=== PATIENT | male | born 1990 | race Caucasian/White ===

== ENCOUNTER 2017-12-31 10:42 | Day surgery (SDC) | payer MEDICAID ==
[2017-12-31] MEDS ORDERED: HYDROCODONE/APAP 5/325MG TABLET PO ONE (10:43)
[2017-12-31] MEDS ORDERED: NEOSTIGMINE 1 MG/1 ML,10ML VIAL IV ONE (10:43)
[2017-12-31] MEDS ORDERED: SUCCINYLCHOLINE 20 MG/ML 10ML IVP ONE (10:43)
[2017-12-31] MEDS ORDERED: PROPOFOL 10 MG/ML VIAL IV ONE (10:43)
[2017-12-31] MEDS ORDERED: FENTANYL PF 100MCG/2ML VIAL IV ONE (10:43)
[2017-12-31] MEDS ORDERED: GLYCOPYRROLATE 0.2 MG/ML ML IV ONE (10:43)
[2017-12-31] MEDS ORDERED: SEVOFLURANE 250 ML INH ONE (10:43)
[2017-12-31] MEDS ORDERED: LIDOCAINE 2% MDV (20MG/ML) 20ML VIAL IV ONE (10:43)
[2017-12-31] MEDS ORDERED: KETOROLAC 30 MG/ML VIAL IVP ONE (10:43)
[2017-12-31] MEDS ORDERED: ROCURONIUM BROMIDE 50MG/5ML VIAL IV ONE (10:43)
[2017-12-31] MEDS ORDERED: MIDAZOLAM HCL 2MG/2ML VIAL IV ONE (10:43)
[2017-12-31] MEDS ORDERED: BUPIVACAINE 0.25% W/EPI MPF 30ML VIAL IVP ONE (10:43)
[2017-12-31] MEDS ORDERED: ONDANSETRON HCL IV 4 MG/2 ML VIAL IVP ONE (10:43)
[2017-12-31] MEDS ORDERED: 0.9 % SODIUM CHLORIDE 1,000 ML BAG IV ONE (11:13)
[2017-12-31] MEDS ORDERED: ONDANSETRON HCL IV 4 MG/2 ML VIAL IV ONE (11:13)
[2017-12-31 11:43] LABS: BASO % 0.1 % (0-6); EOS % 0.1 % (0-6); GRAN % 79.3 % (47-80); HEMOGLOBIN 15.3 gm/dl (14.0-18.0); LYMPH % 8.9 % (16-45); MEAN CELL VOLUME 89.4 fl (81-97); MEAN CORPUSCULAR HEMOGLOBIN 31.1 pg (27-33); MEAN CORPUSCULAR HGB CONC 34.8 g/dl (32-36); MEAN PLATELET VOLUME 10.9 fl (7.4-10.4); MONO % 11.6 % (0-9); PLATELET COUNT 238 K/uL (130-400); RED BLOOD COUNT 4.92 M/uL (4.40-5.70); RED CELL DISTRIBUTION WIDTH 12.6 % (11.5-14.5); URINE APPEARANCE CLEAR; URINE BILIRUBIN SMALL (NEGATIVE); URINE BLOOD TRACE-I (NEGATIVE); URINE COLOR ORANGE; URINE GLUCOSE (UA) NEGATIVE (NEGATIVE); URINE KETONE TRACE (NEGATIVE); URINE LEUKOCYTE ESTERASE NEGATIVE (NEGATIVE); WHITE BLOOD COUNT W/O DIFF 16.6 K/uL (4.2-12.2)
[2017-12-31 11:50] LABS: URINE NITRITE NEGATIVE (NEGATIVE)
[2017-12-31 11:51] LABS: URINE EPITHELIAL CELLS 0 - 2 (FEW); URINE WBC NONE SEEN (0-2/hpf)
--- NOTE | 2017-12-31 11:51 | Emergency Department Record ---
History of Present Illness - General Chief Complaint: Abdominal Pain Stated Complaint: ABDOMINAL PAIN Time Seen by Provider: 12/31/17 11:09 Source: Patient Mode of Arrival: Wheelchair Limitations: No limitations - History of Present Illness Initial Comments: pt has had rlq pain that gets worse with walking. he also has been vomiting. MD Complaint: Abdominal pain Onset/Timin -: Days(s) Location: RLQ Radiation: None Severity: Moderate Quality: Sharp, Stabbing Consistency: Constant Improves With: Nothing Worsens With: Nothing Associated Symptoms: Anorexia, Nausea, Vomiting - Related Data Home Medications Medication Instructions Recorded Confirmed Last Taken No Home Med [NO HOME MEDS] 12/31/17 12/31/17 Unknown Allergies Allergy/AdvReac Type Severity Reaction Status Date / Time No Known Allergies Allergy PT UNSURE Verified 12/31/17 10:48 OF REACTION Travel Screening - Travel/Exposure Within Last 30 Days Have you traveled within the last 30 days?: No - Travel/Exposure Within Last Year Have you traveled outside the [place] in the last year?: No - Additonal Travel Details Have you been exposed to anyone with a communicable illness?: No - Travel Symptoms Symptom Screening: None Review of Systems Reviewed: No additional complaints except as noted below Constitutional: Reports: As per HPI. Denies: Chills, Fever, Malaise, Night sweats, Weakness, Weight change Eyes: Reports: As per HPI. Denies: Eye discharge, Eye pain, Photophobia, Vision change ENT: Reports: As per HPI. Denies: Congestion, Dental pain, Ear pain, Epistaxis , Hearing loss, Throat pain Respiratory: Reports: As per HPI. Denies: Cough, Dyspnea, Hemoptysis, Stridor, Wheezes Cardiovascular: Reports: As per HPI. Denies: Arrhythmia, Chest pain, Dyspnea on exertion, Edema, Murmurs, Orthopnea, Palpitations, Paroxysmal nocturnal dyspnea, Rheumatic Fever, Syncope Endocrine: Reports: As per HPI. Denies: Fatigue, Heat or cold intolerance, Polydipsia, Polyuria Gastrointestinal: Reports: As per HPI. Denies: Abdominal pain, Constipation, Diarrhea, Hematemesis, Hematochezia, Melena, Nausea, Vomiting Genitourinary: Reports: As per HPI. Denies: Dysuria, Frequency, Hematuria, Incontinence, Retention, Testicular pain, Testicular mass, Urgency Musculoskeletal: Reports: As per HPI. Denies: Arthralgia, Back pain, Gout, Joint swelling, Myalgia, Neck pain Skin: Reports: As per HPI. Denies: Bruising, Change in color, Change in hair/ nails, Lesions, Pruritus, Rash Neurological: Reports: As per HPI. Denies: Abnormal gait, Confusion, Headache, Numbness, Paresthesias, Seizure, Tingling, Tremors, Vertigo, Weakness Psychiatric: Reports: As per HPI. Denies: Anxiety, Auditory hallucinations, Depression, Homicidal thoughts, Suicidal thoughts, Visual hallucinations Hematological/Lymphatic: Reports: As per HPI. Denies: Anemia, Blood Clots, Easy bleeding, Easy bruising, Swollen glands Past Medical History - SOCIAL HISTORY Smoking Status: Current every day smoker Alcohol Use: Occasional Drug Use: None - RESPIRATORY Hx Respiratory Disorders: No - CARDIOVASCULAR Hx Cardio Disorders: No - NEURO Hx Neuro Disorders: No - GI Hx GI Disorders: No - Hx Genitourinary Disorders: No - ENDOCRINE Hx Endocrine Disorders: No - MUSCULOSKELETAL Hx Musculoskeletal Disorders: No - PSYCH Hx Psych Problems: No - HEMATOLOGY/ONCOLOGY Hx Hematology/Oncology Disorders: No Family Medical History Any Significant Family History?: Yes Hx Diabetes: Grandparents Hx HTN: Grandparents Physical Exam - General General Appearance: Alert, Oriented x3, Cooperative, Mild distress - Head Head exam: Normal inspection - Eye Eye exam: Normal appearance, PERRL, EOMI Pupils: Normal accommodation - ENT ENT exam: Normal exam, Mucous membranes moist, Normal external ear exam, Normal orophraynx Ear exam: Normal external inspection. negative: External canal tenderness Nasal Exam: Normal inspection. negative: Discharge, Sinus tenderness Mouth exam: Normal external inspection, Tongue normal Teeth exam: Normal inspection. negative: Dental caries Throat exam: Normal inspection. negative: Tonsillar erythema, Tonsillar exudate - Neck Neck exam: Normal inspection, Full ROM. negative: Tenderness - Respiratory Respiratory exam: Normal lung sounds bilaterally. negative: Respiratory distress - Cardiovascular Cardiovascular Exam: Regular rate, Normal rhythm, Normal heart sounds - GI/Abdominal GI/Abdominal exam: Soft, Normal bowel sounds, Tenderness - Rectal Rectal exam: Deferred - exam: Deferred - Extremities Extremities exam: Normal inspection, Full ROM, Normal capillary refill. negative: Tenderness - Back Back exam: Reports: Normal inspection, Full ROM. Denies: Muscle spasm, Rash noted, Tenderness - Neurological Neurological exam: Alert, CN II-XII intact, Normal gait, Oriented X3 - Psychiatric Psychiatric exam: Normal affect, Normal mood - Skin Skin exam: Dry, Intact, Normal color, Warm Course Vital Signs 12/31/17 10:49 Temperature 98 F Pulse Rate 84 Respiratory 18 Rate Blood Pressure 134/73 Pulse Ox 98 Medical Decision Making - Lab Data Result diagrams: 12/31/17 11:15 12/31/17 11:15 Lab Results 12/31/17 Range/Units 11:15 WBC 16.6 H (4.2-12.2) K/uL RBC 4.92 (4.40-5.70) M/uL Hgb 15.3 (14.0-18.0) gm/dl Hct 44.0 (42.0-52.0) % MCV 89.4 (81-97) fl MCH 31.1 (27-33) pg MCHC 34.8 (32-36) g/dl RDW 12.6 (11.5-14.5) % Plt Count 238 (130-400) K/uL MPV 10.9 H (7.4-10.4) fl Gran % 79.3 (47-80) % Lymphocytes % 8.9 L (16-45) % Monocytes % 11.6 H (0-9) % Eosinophils % 0.1 (0-6) % Basophils % 0.1 (0-6) % Disposition Disposition: Admit Clinical Impression: Acute appendicitis Qualifiers: Acute appendicitis type: unspecified acute appendicitis type Qualified Code(s) : K35.80 - Unspecified acute appendicitis Disposition: Still a Patient at [facility] Decision to Admit: Admit from ER Decision to Admit Date: 12/31/17 Decision to Admit Time: 12:34 Forms: Patient Portal Access Quality - Quality Measures Quality Measures: N/A - Blood Pressure Screening Does Patient Have Any of the Following: No Blood Pressure Classification: Pre-Hypertensive BP Reading Systolic Measurement: 134 Diastolic Measurement: 73 Screening for High Blood Pressure: < Pre-Hypertensive BP, F/U Documented > [ G8950] Pre-Hypertensive Follow-up Interventions: Follow-up with rescreen every year.
[2017-12-31 11:53] LABS: BLOOD UREA NITROGEN 13 mg/dL (6-20); CREATININE 0.8 mg/dL (0.7-1.2); EST GLOMERULAR FILTRATION RATE > 60 mL/min
[2017-12-31 11:54] LABS: TOTAL PROTEIN 8.4 g/dL (6.6-8.7)
[2017-12-31 11:56] LABS: GLUCOSE,RANDOM 105 mg/dL (74-109)
[2017-12-31 11:58] LABS: ALBUMIN 4.9 g/dL (4.0-5.0); ALKALINE PHOSPHATASE 65 U/L (40-129); ALT/SGPT 117 U/L (<41); AST/SGOT 56 U/L (10.0-50.0); BILIRUBIN,DIRECT 0.5 mg/dL (0-0.3)
[2017-12-31 11:59] LABS: LIPASE 25 U/L (13-60)
[2017-12-31] MEDS ORDERED: HYDROMORPHONE HCL 2 MG/ML VIAL IVP ONE (12:28)
[2017-12-31] MEDS ORDERED: AMPICILLIN SODIUM/SULBACTAM NA 3 G in 0.9 % SODIUM CHLORIDE 100ML 100 ML IVPB ONE (12:33)
--- NOTE | 2018-01-01 07:21 | Operative Note ---
DATE OF SURGERY: 12/31/2017 Surgeon: Mik Chavez DO PREOPERATIVE DIAGNOSIS: Acute appendicitis. POSTOPERATIVE DIAGNOSIS: Acute appendicitis. OPERATION: Laparoscopic appendectomy. Indication: The patient is a 27-year-old male who presented with about a 24-hour history of abdominal pain. This did settle in his right lower quadrant. He was therefore seen in the [facility] ER where full workup was done. This did include CT scan and laboratory values. This showed an elevated white blood cell count and CT scan findings consistent with acute appendicitis without rupture. We did discuss appendectomy. Risks, benefits, and alternatives were discussed. His clinical history and physical exam fit the same as well. PROCEDURE: Thereafter, consent was signed and questions answered. The patient was taken to the operating room and placed in a supine position. General anesthesia was administered per the department of anesthesia. The patient's abdomen was shaved of hair and prepped and draped in the usual fashion. His left arm was tucked to the side and he had voided preoperatively. At this time, adequate timeout was performed. He did receive preoperative antibiotic as well as DVT and GI prophylaxis. The infraumbilical region was anesthetized with a total of 2 mL of 0.25% Sensorcaine with epinephrine. A 2 cm infraumbilical incision was made. This was carried down to the anterior rectus fascia. This was incised. Minoo clamps were placed on the fascial edges and brought up into the wound. Stay sutures of 0 Vicryl placed. Posterior rectus sheath was identified and incised. The peritoneal cavity was entered bluntly. At this time, a 10 mm blunt Wayne port was placed. Adequate pneumoperitoneum established. Under direct visualization, additional 5 mm right subcostal and 5 mm suprapubic ports were placed. The patient was then rotated into Trendelenburg position with rotation to left. The appendix was located in the right mid abdomen. It was noted to be dilated, curled, hyperemic, and inflamed. At this time, this was lifted anteriorly and the mesoappendix was taken down serially with the Ac harmonic. The base of the appendix was then skeletonized off the cecum. Endo-TAWANDA stapling device was used to transect the base of the appendix off the cecum. This was placed in an EndoCatch bag and brought out infraumbilically. The right lower quadrant was rechecked and was noted to be hemostatic. There was no free fluid noted, no perforation noted. No bleeding noted. The patient was leveled out. Pneumoperitoneum was released. All ports were removed. The fascia was closed with 0 Vicryl in a [id number] fashion. The skin at all 3 ports was closed with 4-0 Vicryl. He was taken to the recovery room in satisfactory condition. FINDINGS ON SURGERY: Acute appendicitis. CC: Jami CASAREZ
--- NOTE | 2018-01-01 14:29 | CT SCAN REPORT ---
EXAM: EMERGENCY CT OF THE ABDOMEN AND PELVIS WITHOUT CONTRAST HISTORY: RIGHT LOWER QUADRANT ABDOMINAL PAIN FOR ONE DAY. CHOLECYSTECTOMY IN 2016. TECHNIQUE: Axial CT scan of the abdomen and pelvis was performed without oral or IV contrast. Comparison: None. FINDINGS: Surgical clips are seen in the right upper quadrant consistent with the history of cholecystectomy. No intrarenal calculi or hydronephrosis identified on either side. No hydroureter is seen. As such it is somewhat difficult to follow the entire course of both ureters in their nondilated state throughout the retroperitoneum and pelvis, however, no definite ureteral calculus seen on either side and no bladder calculus evident. Evaluation of the bowel and viscera is very limited without oral or IV contrast. The patient is also relatively thin body habitus with corresponding little adipose tissue to act as a natural contrast agent the bowel and viscera in the abdomen and pelvis. Given these limitations, no definite hepatic, splenic, adrenal, pancreatic, or renal mass identified. In the right lower quadrant there are some calcifications seen which are probably associated with a dilated appendix measuring about 12 mm in diameter. There is blurring of the adjacent periappendiceal adipose tissue as well and findings are consistent with acute appendicitis with associated multiple appendicolith's. There is a small amount of free fluid in the low pelvis. No free intraperitoneal air identified. Some degenerative changes at the L2-L3 interspace. IMPRESSION: 1. FINDINGS CONSISTENT WITH ACUTE APPENDICITIS WITH MULTIPLE APPENDICOLITH'S PRESENT. 2. SMALL AMOUNT OF FREE FLUID IN THE PELVIS. NO FREE AIR EVIDENT. 3. POSTOP CHOLECYSTECTOMY. JOB NUMBER: [id number] [facility]
== END 2017-12-31 18:25 | disposition home or self-care (01) ==
LOC: SUR 10:42 → ER 10:42 → SUR 15:54
PROVIDERS: ATTEND Emergency Medicine
DX: K35.80 Unspecified acute appendicitis (principal)
CPT/HCPCS: 44970; 00840; 99285 ×2; 96365; 96375; 83690; 85025; 80076; 80048; 81001; 74176; J0295; J1885; J2405; J3010; J1170; J0330; J2710; J7030

== ENCOUNTER 2018-10-03 21:09 | Emergency (ER) | payer MEDICAID ==
--- NOTE | 2018-10-03 21:26 | Emergency Department Record ---
History of Present Illness - General Chief complaint: Male Urogenital Problem Stated complaint: MALE ISSUE Time Seen by Provider: 10/03/18 21:22 Source: Patient Mode of Arrival: Ambulatory Limitations: No limitations - History of Present Illness Initial comments: 28 yo male presents to ED for evaluation of left sided testicle pain and swelling that began this morning. Patient denies trauma or injury, denies dysuria symptoms or penile discharge symptoms. Patient also reports vasectomy 1 year ago. Patient denies health problems at his baseline. MD Complaint: Testicle pain, Testicle swelling Onset/Timin -: Hour(s) Location: Left testicle Radiation: None Severity: Moderate Severity scale (1-10): 7 Quality: Aching Consistency: Constant, Getting worse Improves with: None Worsens with: None Reports: Denies other symptoms - Related Data Sexually active: Yes Allergies Allergy/AdvReac Type Severity Reaction Status Date / Time No Known Allergies Allergy PT UNSURE Verified 12/31/17 10:48 OF REACTION Travel Screening - Travel/Exposure Within Last 30 Days Have you traveled within the last 30 days?: No - Travel Symptoms Symptom Screening: None Review of Systems Constitutional: Denies: Chills, Fever, Malaise, Night sweats Eyes: Denies: Eye discharge, Eye pain ENT: Denies: Congestion, Ear pain, Epistaxis Respiratory: Denies: Cough, Dyspnea Cardiovascular: Denies: Chest pain, Dyspnea on exertion Endocrine: Denies: Fatigue, Heat or cold intolerance Gastrointestinal: Denies: Abdominal pain, Nausea, Vomiting Genitourinary: Reports: Testicular pain. Denies: Incontinence, Retention Musculoskeletal: Denies: Arthralgia, Back pain, Gout, Joint swelling Skin: Denies: Bruising, Change in color Neurological: Denies: Abnormal gait, Confusion, Headache, Seizure Psychiatric: Denies: Anxiety Hematological/Lymphatic: Denies: Anemia, Blood Clots Past Medical History - SOCIAL HISTORY Smoking Status: Current every day smoker Alcohol Use: None Drug Use: None - RESPIRATORY Hx Respiratory Disorders: No - CARDIOVASCULAR Hx Cardio Disorders: No - NEURO Hx Neuro Disorders: No - GI Hx GI Disorders: Yes Hx Abdominal Pain: Yes Hx GI Bleed: Yes Hx Nausea/Vomiting: Yes - Hx Genitourinary Disorders: No - ENDOCRINE Hx Endocrine Disorders: No - MUSCULOSKELETAL Hx Musculoskeletal Disorders: Yes - PSYCH Hx Psych Problems: No - HEMATOLOGY/ONCOLOGY Hx Hematology/Oncology Disorders: No Family Medical History Any Significant Family History?: Yes Hx Diabetes: Grandparents Hx HTN: Grandparents Physical Exam - General General Appearance: Alert, Oriented x3, Cooperative, Mild distress Limitations: No limitations - Head Head exam: Atraumatic, Normocephalic, Normal inspection Head exam detail: negative: Abrasion, Contusion, Garza's sign, General tenderness, Hematoma, Laceration - Eye Eye exam: Normal appearance. negative: Conjunctival injection, Periorbital swelling, Periorbital tenderness, Scleral icterus - ENT Ear exam: negative: Auricular hematoma, Auricular trauma Nasal Exam: negative: Active bleeding, Discharge, Dried blood, Foreign body Mouth exam: negative: Drooling, Laceration, Muffled voice, Tongue elevation - Neck Neck exam: Normal inspection. negative: Meningismus, Tenderness - Respiratory Respiratory exam: Normal lung sounds bilaterally. negative: Rales, Respiratory distress, Rhonchi, Stridor - Cardiovascular Cardiovascular Exam: Regular rate, Normal rhythm, Normal heart sounds - GI/Abdominal GI/Abdominal exam: Soft. negative: Rebound, Rigid, Tenderness - Rectal Rectal exam: Deferred - exam: Scrotal swelling, Testicular tenderness, Other (Mild TTP to the left testicle on examination, mild STS of the testicle as well.) - Extremities Extremities exam: negative: Calf tenderness, Pedal edema, Tenderness - Back Back exam: Denies: CVA tenderness (R), CVA tenderness (L) - Neurological Neurological exam: Alert, Normal gait, Oriented X3 - Psychiatric Psychiatric exam: Normal affect, Normal mood - Skin Skin exam: Normal color. negative: Abrasion Type of lesion: negative: abrasion Course Vital Signs 10/03/18 21:16 Temperature 98.5 F Pulse Rate 65 Respiratory 16 Rate Blood Pressure 154/96 Pulse Ox 100 - Reevaluation(s) Reevaluation #1: 10/03/18 21:25 Patient was seen and examined, counseled re: the need for scrotal US. Case was discussed with Alyson, will accept transfer for US of the scrotum. Disposition Disposition: Transfer Clinical Impression: Pain in testicle Disposition: Home, Self-Care Transfer To: [facility] Reason For Transfer: US scrotal Accepting Physician: Alyson Time Discussed w/Accepting Physician: 21:23 Condition: (2) Stable Forms: Patient Portal Access Quality - Quality Measures Quality Measures: N/A - Blood Pressure Screening Does Patient Have Any of the Following: No Blood Pressure Classification: Hypertensive Reading Systolic Measurement: 154 Diastolic Measurement: 96 Screening for High Blood Pressure: < First Hypertensive BP, F/U Documented > [ G8950] First Hypertensive Follow-up Interventions: Referral to alternative/primary care provider.
== END 2018-10-03 21:40 | disposition home or self-care (01) ==
LOC: ER 21:09
DX: N50.812 Left testicular pain (principal); F17.210 Nicotine dependence, cigarettes, uncomplicated
CPT/HCPCS: 99283